=== PATIENT | female | born 1980 | race African-American/Black ===

== ENCOUNTER 2021-11-24 21:23 | Emergency (ER) | payer MEDICAID ==
[~2021-11-24] VITALS: Ht 170.2 cm; Wt 72.6 kg
--- NOTE | 2021-11-24 21:35 | NUR ---
BIBFAMILY C/O MID ABDOMINAL PAIN SINCE 12PM +N/V BS-[id number] +DIAPHORETIC. BROUGHT IN VIA WHEELCHAIR, PLACED ON BED, AAOX4, IN PAIN 10/10 PS.
[2021-11-24] MEDS ORDERED: IV NS 0.9% 1,000 ML BAG IV ONE (22:00)
[2021-11-24] MEDS ORDERED: MORPHINE SULFATE INJ 2 MG/ML DISP.SYRIN IV ONE (22:00)
[2021-11-24] MEDS ORDERED: ONDANSETRON HCL/PF 4 MG/2 ML VIAL IVP ONE (22:00)
[2021-11-24] MEDS ORDERED: MORPHINE SULFATE INJ 4 MG/ML DISP.SYRIN ONE (22:21)
[2021-11-24] MEDS ORDERED: ONDANSETRON HCL/PF 4 MG/2 ML VIAL ONE (22:21)
--- NOTE | 2021-11-24 22:30 | NUR ---
CLIENT RELATIONS REPRESENTATIVE AT BED SIDE
--- NOTE | 2021-11-24 22:38 | NUR ---
MOTHER, BAO: [phone]
[2021-11-24 23:01] LABS: BASOPHILS # (AUTO) 0.1 K/uL (0.0-0.2); BASOPHILS % (AUTO) 0.9 % (0.0-2.0); EOSINOPHILS % (AUTO) 0.7 % (0.0-6.0); HEMATOCRIT 39 % (33-45); HEMOGLOBIN 12.7 g/dL (11.5-14.8); LYMPHOCYTES # (AUTO) 2.6 K/uL (0.8-4.8); LYMPHOCYTES % (AUTO) 22.1 % (20.0-44.0); MEAN CORPUSCULAR HGB CONC 32 g/dl (31.0-36.0); MEAN CORPUSCULAR VOLUME 89 fL (82-100); MONOCYTES # (AUTO) 0.7 K/uL (0.1-1.30); MONOCYTES % (AUTO) 5.7 % (2.0-12.0); NEUTROPHILS # (AUTO) 8.4 K/uL (1.8-8.9); NEUTROPHILS % (AUTO) 70.6 % (43.0-81.0); PLATELET COUNT (AUTO) 242 K/uL (150-450); RED BLOOD CELL COUNT(AUTO) 4.41 MIL/uL (4.0-5.2); WHITE BLOOD COUNT (AUTO) 11.9 K/uL (4.3-11.0)
[2021-11-24 23:18] LABS: CALCIUM, SERUM 10.4 mg/dL (8.5-10.1); CREATININE 1.2 mg/dL (0.6-1.3); POTASSIUM 3.1 mmol/L (3.5-5.1)
[2021-11-24 23:24] LABS: ALBUMIN 4.4 g/dL (3.4-5.0); BILIRUBIN,DIRECT 0.2 mg/dL (0.0-0.2); BILIRUBIN,TOTAL 0.6 mg/dL (0.2-1.0); TOTAL PROTEIN, SERUM 8.4 g/dL (6.4-8.2)
--- NOTE | 2021-11-24 23:54 | NUR ---
URINE SPECIMEN SENT TO LAB
--- NOTE | 2021-11-25 | NUR ---
PT BROUGHT TO CT DEPT
[2021-11-25] MEDS ORDERED: IV NS 0.9% 1,000 ML IV PRN (00:30)
[2021-11-25] MEDS ORDERED: MORPHINE SULFATE INJ 2 MG/ML DISP.SYRIN IV ONE (00:30)
[2021-11-25] MEDS ORDERED: MORPHINE SULFATE INJ 2 MG/ML DISP.SYRIN ONE (00:38)
[2021-11-25] MEDS ORDERED: MORPHINE SULFATE INJ 4 MG/ML DISP.SYRIN ONE (00:39)
--- NOTE | 2021-11-25 01:01 | NUR ---
IV CANNULA G20 INSERTED ON LEFT HAND.
--- NOTE | 2021-11-25 01:02 | NUR ---
RT AT BEDSIDE FOR ABG.
[2021-11-25 01:19] LABS: ABG BASE EXCESS -7.1 mmol/L; ABG PCO2 21.1 mmHg (35.0-45.0); ABG PH 7.457 (7.350-7.450); ABG PO2 125.9 mmHg (75.0-100.0); COHb 0.3 % (0.5-1.5); MetHb 0.3 % (0.0-1.5); O2Hb 97.8 % (94.0-97.0); SITE, ABG Right Radial; VENT MODE, BG ROOM AIR
[2021-11-25 03:37] LABS: CALCIUM, SERUM 8.8 mg/dL (8.5-10.1); CREATININE 0.9 mg/dL (0.6-1.3)
[2021-11-25] MEDS ORDERED: DICY10CA13 PO (04:11)
[2021-11-25] MEDS ORDERED: ONDA4TAB11 PO (04:11)
[2021-11-25] MEDS ORDERED: PROCHLORPERAZINE EDISYLATE 10 MG/2 ML VIAL ONE (04:27)
[2021-11-25] MEDS ORDERED: PROCHLORPERAZINE EDISYLATE 10 MG/2 ML VIAL IVP ONE (04:30)
--- NOTE | 2021-11-25 04:48 | NUR ---
CALLED MOTHER BAO [phone], THEY WILL COME TO STRATEGIC SOURCING CONSULTANT PATIENT IN 20 MINS.
--- NOTE | 2021-11-25 05:16 | NUR ---
Patient discharged to home in stable condition. Written and verbal after care instructions given. Patient verbalizes understanding of instruction.
--- NOTE | 2021-11-25 05:16 | NUR ---
IV CANNULA REMOVED
[2021-11-25 05:17] VITALS: BP 161/74
== END 2021-11-25 05:17 | disposition home or self-care (01) ==
LOC: ER 21:29
DX: R10.13 Epigastric pain (principal); E86.0 Dehydration; I10 Essential (primary) hypertension; E11.9 Type 2 diabetes mellitus without complications
CPT/HCPCS: 99284; 74176; 96374; 96375 ×2; 85025; 80048 ×2; 83690; 80076; 36415 ×2; 82962; 84702; 96361; 82803; 96376; 82010; 36600 ×2; J2270 ×3; J2405; J7030 ×2; J0780